=== PATIENT | female | born 1965 | race Caucasian/White ===

== ENCOUNTER → 2018-11-10 | Outpatient (CLI) | payer BC ==
--- NOTE | 2018-11-10 12:04 | RADIOLOGY REPORT (SQ) ---
EXAM DESCRIPTION: U/S ABDOMEN LIMITED W/O DOP COMPLETED DATE/TIME: 11/10/2018 11:39 am REASON FOR STUDY: RUQ PAIN R10.11 RIGHT UPPER QUADRANT PAIN COMPARISON: None. TECHNIQUE: Dynamic and static grayscale images acquired of the abdomen and recorded on PACS. Additio yoon selected color Doppler and spectral images recorded. LIMITATIONS: None. FINDINGS: PANCREAS: No masses. Visualized pancreatic duct normal caliber. LIVER: No masses. Echotexture normal. LIVER VASCULATURE: Normal directional flow of the main portal vein and hepatic veins. GALLBLADDER: No stones. Normal wall thickness. No pericholecystic fluid. ULTRASOUND-DETECTED KRISHNAMURTHY'S SIGN: Negative. INTRAHEPATIC DUCTS AND COMMON DUCT: CBD and intrahepatic ducts normal caliber. No filling defects. INFERIOR VENA CAVA: Normal flow. AORTA: No aneurysm. RIGHT KIDNEY: Normal size. Normal echogenicity. No solid or suspicious masses. No hydronephrosis. No calcifications. PERITONEAL AND RIGHT PLEURAL SPACE: No ascites or effusions. OTHER: No other significant findings. IMPRESSION: NORMAL RIGHT UPPER QUADRANT ULTRASOUND. TECHNICAL DOCUMENTATION: JOB ID: [id number]- All Rights Reserved Reading location - IP/workstation name: [email or web address]
== END ==
LOC: RAD 10:44
PROVIDERS: ATTEND Internal Medicine Gastroenterology
DX: R10.11 Right upper quadrant pain (principal)
CPT/HCPCS: 76705

== ENCOUNTER → 2018-11-25 | Outpatient (CLI) | payer BC ==
--- NOTE | 2018-11-25 11:40 | RADIOLOGY REPORT (SQ) ---
EXAM DESCRIPTION: NM HIDA SCAN WITH CCK COMPLETED DATE/TIME: 11/25/2018 10:21 am REASON FOR STUDY: RUQ PAIN R10.11 RIGHT UPPER QUADRANT PAIN COMPARISON: None. RADIONUCLIDE AND DOSE: DOSAGE RADIONUCLIDE: 5.47 millicuries Tc99m Mebrofenin. DOSAGE CCK: 1.6 micrograms. DOSAGE MORPHINE: Not required. The route of agent administration: Intravenous TECHNIQUE: Serial imaging right upper quadrant up to 60 minutes following injection of radionuclide. CCK injected after gallbladder visualized. LIMITATIONS: None. FINDINGS: LIVER: Normal visualization without areas of photopenia. INTRAHEPATIC BILE DUCTS: Normal size and no delay in visualization. COMMON BILE DUCT: Normal without dilatation. GALLBLADDER: Normal visualization. Calculated ejection fraction of 74%. Normal range is greater th an 35%. PHYSICAL RESPONSE: Patients presenting complaint was not reproduced. OTHER: No other significant finding. IMPRESSION: NORMAL STUDY WITHOUT CYSTIC OR COMMON DUCT OBSTRUCTION. NORMAL GALLBLADDER EJECTION FRA CTION. NO EVIDENCE FOR BILIARY DYSKINESIS. TECHNICAL DOCUMENTATION: JOB ID: [id number] [employer]- All Rights Reserved Reading location - IP/workstation name: [email or web address]
== END ==
LOC: RAD 07:48
PROVIDERS: ATTEND Internal Medicine Gastroenterology
DX: R10.11 Right upper quadrant pain (principal)
CPT/HCPCS: 78227; J2805; A9537; Q9969

== ENCOUNTER → 2019-04-27 | Outpatient (CLI) | payer BC ==
--- NOTE | 2019-04-27 10:14 | WOMENS IMAGING REPORT ---
EXAM DESCRIPTION: 3D SCREENING MAMMO BILAT COMPLETED DATE/TIME: 04/27/2019 9:39 am REASON FOR STUDY: Z12.31 SCREENING MAMMO Z12.31 ENCNTR SCREEN MAMMOGRAM FOR MALIGNANT NEOPLASM OF B RE COMPARISON: None. EXAM PARAMETERS: Views: Standard craniocaudal and mediolateral oblique views of each breast recorded using digital acquisition and breast tomosynthesis. Read with the assistance of CAD. .[facility] - [employer] Version 9.2 LIMITATIONS: None. FINDINGS: No suspicious masses, suspicious calcifications or architectural distortion. No areas of c oncern. IMPRESSION: NEGATIVE MAMMOGRAM. BIRADS 1. BREAST DENSITY: b. There are scattered areas of fibroglandular density. BIRAD: ASSESSMENT: 1 NEGATIVE RECOMMENDATION: ROUTINE SCREENING COMMENT: The patient has been notified of the results by letter per MQSA requirements. Additional no tification policies are in place for contacting patient with suspicious or incomplete findings. Quality ID #[id number]: The [employer] recommends an annual screening mammogram for women aged 40 years or over. This facility utilizes a reminder system to ensure that all patients receive reminder letters, and/or direct phone calls for appointments. This includes reminders for routine scr eening mammograms, diagnostic mammograms, or other Breast Imaging Interventions when appropriate. Th is patient will be placed in the appropriate reminder system. TECHNICAL DOCUMENTATION: FINDING NUMBER: (1) ASSESSMENT: (1) JOB ID: [id number] [employer]- All Rights Reserved Reading location - IP/workstation name: [email or web address]
== END ==
LOC: WI 08:55
PROVIDERS: ATTEND Nurse Practitioner Family
DX: Z12.31 Encounter for screening mammogram for malignant neoplasm of breast (principal)
CPT/HCPCS: 77063; 77067

== ENCOUNTER → 2019-06-08 | Outpatient (CLI) | payer BC ==
--- NOTE | 2019-06-08 16:23 | XCELERA REPORT ---
[address] [address] Lower Extremity Venous Evaluation Procedure: Color flow and duplex imaging bilaterally of the veins of the lower extremities as well as the Common Femoral veins. Right Sided Venous Evaluation Color flow and duplex imaging of the veins of the right lower extremity. Left Sided Venous Evaluation Color flow and duplex imaging of the veins of the right lower extremity. Interpretation Summary No duplex evidence of DVT or obstruction in the bilateral lower extremities. Name: MALKA DUARTE Age: 54 yrs Gender: Female : 1965 Patient Status: Outpatient Patient Location: [facility] Study Date: 06/08/2019 01:02 PM Reason For Study: LOCALIZED EDEMA Ordering Physician: CHAVO ASCENCIO Performed By: Fina Jensen : CHAVO ASCENCIO > Joe Wyatt
--- NOTE | 2019-06-09 08:38 | XCELERA REPORT ---
[address] [address] Tel: [phone] Fax: [phone] Lower Extremity Arterial Evaluation Name: MALKA DUARTE Age: 54 yrs Gender: Female : 1965 Patient Status: Preadmit Patient Location: [facility] Study Date: 06/08/2019 01:47 PM Procedure: Ankle brachial indicies performed. Reason For Study: DECREASED PEDAL PULSES Ordering Physician: CHAVO ASCENCIO Performed By: Serge Cornejo Right Side Arterial Evaluation TONY in Posterior Tibial:1.08. . Multiphasic waveform. Left Side Arterial Evaluation TONY in Anterior Tibial:0.19. Multiphasic waveform. Interpretation Summary Normal TONY. Suggesting normal arterial system, within the limitations of this technique. : CHAVO ASCENCIO > Joe Wyatt
== END ==
LOC: SP 12:39
PROVIDERS: ATTEND Nurse Practitioner Family
DX: R60.0 Localized edema (principal); R09.89 Other specified symptoms and signs involving the circulatory and respiratory systems
CPT/HCPCS: 93922; 93970

== ENCOUNTER 2019-06-22 18:58 | Emergency (ER) | payer BC ==
--- NOTE | 2019-06-22 22:04 | ER Document Report ---
HPI - HPI Time Seen by Provider: 06/22/19 22:02 Pain Level: 3 Context: Patient is a 54-year-old female who presents the emergency department with a chief complaint of left foot injury. Patient reports around 6 PM tonight she was helping her son move a wooden platform when she tripped backwards over a cord. She reports that as she tripped her son dropped a wooden platform on the top of her left foot. Patient reports she was barefoot at that time and is not wearing shoes or socks. Patient reports she is having pain to the top of the left foot with bruising and swelling. Patient has been using crutches of her own. Patient reports her tetanus shot is up-to-date. Patient unable to walk due to the significant pain. Patient reports that she fell she did not injure herself anywhere else and does not have any ankle pain. - CONSTITUTIONAL Constitutional: DENIES: Fever, Chills - DERM Skin Color: Normal Past Medical History - General Information source: Patient - Social History Smoking Status: Never Smoker Frequency of alcohol use: None Drug Abuse: None Lives with: Family Family History: None Patient has suicidal ideation: No Patient has homicidal ideation: No - Past Medical History Cardiac Medical History: Reports: Hx Coronary Artery Disease - CARDIAC CATH IN 2012, Hx Hypertension Denies: Hx Heart Attack Pulmonary Medical History: Denies: Hx Asthma, Hx Bronchitis, Hx COPD, Hx Pneumonia EENT Medical History: Reports: None Neurological Medical History: Reports: Hx Seizures - 2014 POSSIBLY R/T LOW SODIUM. Denies: Hx Cerebrovascular Accident Endocrine Medical History: Reports: None Renal/ Medical History: Reports: None Malignancy Medical History: Reports: None GI Medical History: Reports: None Musculoskeletal Medical History: Reports Hx Arthritis Skin Medical History: Reports None Psychiatric Medical History: Reports: None Traumatic Medical History: Reports: None Infectious Medical History: Reports: None Surgical Hx: Negative - Immunizations Hx Diphtheria, Pertussis, Tetanus Vaccination: Yes Vertical Provider Document - CONSTITUTIONAL Agree With Documented VS: Yes Exam Limitations: No Limitations General Appearance: No Apparent Distress - INFECTION CONTROL TRAVEL OUTSIDE OF THE [place] IN LAST 30 DAYS: No - HEENT HEENT: Atraumatic, Normocephalic, PERRLA - NECK Neck: Normal Inspection - RESPIRATORY Respiratory: Breath Sounds Normal, No Respiratory Distress - CARDIOVASCULAR Cardiovascular: Regular Rate, Regular Rhythm - GI/ABDOMEN Gastrointestinal: Abdomen Soft, Abdomen Non-Tender, Normal Bowel Sounds - MUSCULOSKELETAL/EXTREMETIES Notes: Patient has a superficial abrasion noted to the top of the left foot. Patient does have significant edema and ecchymosis as well as point tenderness to the b ase of the third, fourth and fifth meta tarsals. Patient does have a less than 2-second cap refill on all toes on the foot. Patient does not have any point tenderness to the medial or lateral malleolus. - NEURO Level of Consciousness: Awake, Alert, Appropriate - DERM Integumentary: Warm, Dry Course - Re-evaluation Re-evalutation: 06/22/19 22:04 Patient does have crutches of her own. Will obtain an x-ray to rule out bony abnormality of the left foot. 06/22/19 23:08 Patient x-ray was negative for any acute bony abnormality such as a fracture dislocation. Patient will be diagnosed with a contusion of the left foot. Patient was given strict return precautions and noted that if she did not feel better within the next week to follow-up with her primary care physician or the orthopedic to have a repeat x-ray. Patient verbalized understanding. Patient does have crutches that she brought from home. - Vital Signs Vital signs: Temp Pulse Resp BP Pulse Ox 98.4 F 65 15 135/75 H 98 06/22/19 19:34 06/22/19 19:34 06/22/19 19:34 06/22/19 19:34 06/22/19 19:34 - Diagnostic Test Radiology reviewed: Reports reviewed Radiology results interpreted by me: 06/22/19 23:01 Foot X-Ray 06/22/19 22:02 IMPRESSION: No acute fracture copyright 2011 [employer]- All Rights Reserved Discharge - Discharge Clinical Impression: Contusion of left foot Qualifiers: Encounter type: initial encounter Qualified Code(s): S90.32XA - Contusion of left foot, initial encounter Condition: Stable Disposition: HOME, SELF-CARE Additional Instructions: *Today you are seen in the emergency department for left foot pain after an injury. We did obtain an x-ray which was negative for any acute fracture. At this time there is no obvious fracture. Your symptoms are most likely consistent with a left foot contusion. Contusions or deep bruises. This can cause swelling as well as bruising. Please continue to use her crutches over the next few days, keep the foot elevated, keep this iced. If you continue to have foot pain after 1 week that gets worse and is not improving I would follow- up with orthopedics or return to the emergency department for repeat x-ray. Sometimes there is so much swelling after the initial injury they cannot see a fracture. Please take Tylenol and ibuprofen as needed for pain. Referrals: CHAVO ASCENCIO NP [Primary Care Provider] - Follow up as needed JENS CEBALLOS MD [ACTIVE STAFF] - Follow up as needed NICKOLAS VIVAR JR, DO [ACTIVE PROVISIONAL STAFF] - Follow up as needed
--- NOTE | 2019-06-22 22:59 | RADIOLOGY REPORT (SQ) ---
EXAM DESCRIPTION: XR FOOT 3 OR MORE VIEWS COMPLETED DATE/TME: 06/22/2019 22:02 CLINICAL HISTORY: 54 years, Female, dropped wooden platform on foot COMPARISON: None. NUMBER OF VIEWS: 3 TECHNIQUE: 3 view left foot LIMITATIONS: None. FINDINGS: Dorsal soft tissue swelling. Negative for acute fracture or dislocation. IMPRESSION: No acute fracture copyright 2010 [employer]- All Rights Reserved
[2019-06-22 23:23] VITALS: BP 133/90
== END 2019-06-22 23:20 | disposition home or self-care (01) ==
LOC: ER 18:58
DX: S90.32XA Contusion of left foot, initial encounter (principal); W01.0XXA Fall on same level from slipping, tripping and stumbling without subsequent striking against object, initial encounter
CPT/HCPCS: 99283

== ENCOUNTER 2020-06-10 10:32 | Day surgery (SDC) | payer BC ==
[~2020-06-10 10:32] MED LIST: CEFAZOLIN 2 GM/D5W RTU 2 GM/50 ML RTUPB IV PRN; FENTANYL CITRATE INJ/PF 100 MCG/2 ML AMPUL ONE; LACTATED RINGERS 1000 ML IV PRN; MIDAZOLAM 2 MG/2 ML INJ ONE; PROPOFOL INJ 200 MG/20 ML VIAL IV ONE
[2020-06-10] MEDS ORDERED: ONDANSETRON HCL INJ/PF 4 MG/2 ML SDV IV PRN (11:40)
[2020-06-10] MEDS ORDERED: RINGERS SOLUTION,LACTATED 1,000 ML IV PRN (11:40)
[2020-06-10] MEDS ORDERED: KETOROLAC TROMETHAMINE 60 MG/2 ML SDV IM PRN (11:40)
[2020-06-10] MEDS ORDERED: OXYCODONE-ACETAMINOPHEN 5-325 MG TABLET PO PRN ×3 (11:40→12:09)
[2020-06-10] MEDS ORDERED: BUPIVACAINE HCL 0.25 % INJ/PF (2.5 MG/1 ML) 30 ML VIAL ONE (11:45)
[2020-06-10] MEDS ORDERED: TRIAMCINOLONE ACETONIDE INJ 40 MG/1 ML VIAL ONE (11:45)
[2020-06-10] MEDS ORDERED: PROMETHAZINE HCL INJ 25 MG/1 ML VIAL IV PRN ×2 (12:09)
[2020-06-10] MEDS ORDERED: DIPHENHYDRAMINE HCL 50 MG/ML VIAL IV PRN (12:09)
[2020-06-10] MEDS ORDERED: FENTANYL CITRATE INJ/PF 100 MCG/2 ML AMPUL IV PRN ×3 (12:09)
[2020-06-10] MEDS ORDERED: MORPHINE SULFATE 10 MG/ML INJ IV PRN (12:09)
--- NOTE | 2020-06-10 12:12 | Operative Report ---
Operative Report DATE OF SURGERY: 06/10/20 PREOPERATIVE DIAGNOSIS: Left shoulder adhesive capsulitis POSTOPERATIVE DIAGNOSIS: Left shoulder adhesive capsulitis OPERATION: Left shoulder manipulation under anesthesia, left shoulder injection. SURGEON: NICKOLAS VIVAR JR ANESTHESIA: Moderate Sedation COMPLICATIONS: None ESTIMATED BLOOD LOSS: None PROCEDURE: Patient has diagnosis of left shoulder adhesive capsulitis that has been refractory to approximately 6 weeks of physical therapy. At this point she feels that she has plateaued and is not making further gains and was interested in further intervention for improving her shoulder range of motion and pain. Preoperatively we discussed risks and benefits of different treatment alternati ves including surgical and nonsurgical management and potentially manipulating under anesthesia with a subsequent shoulder injection. She opted for the latter and provided informed operative consent in the office. The patient was brought into the holding area and the PACU where she was placed under moderate sedation. Appropriate timeout was performed followed by evaluation of the right shoulder under anesthesia. Right shoulder range of motion was 170 degrees of forward flexion 170 degrees of abduction, 30 degrees of internal rotation and a D duction, 70 degrees of external rotation and add uction, 90 degrees of external and 90 degrees of internal rotation rotation in 90 degrees of abduction. The left shoulder was then evaluated under anesthesia and found to have approximately 10 degrees of internal and external rotation and 90 degrees of a B duction, similar findings in adduction, forward flexion to approximately 100 degrees, abduction to 90 degrees, extension to 20 degrees. I then proceeded to take the patient through a range of motion and forward flexion to 170 degrees. Substantial amount of crepitance was experienced as she released her capsule. This was palpable and audible. Patient was then taken through abduction with similar findings and then subsequently through internal and external rotation of both abduction and adduction. We were able to obtain symmetrical range of motion to the contralateral side. The only area where we the patient had some persistent stiffness was in internal rotation and adduction which reached approximately 70 degrees and had a soft endpoint. After completing the manipulation under anesthesia I then palpated the left shoulder to find the coracoid. The soft spot in the posterior shoulder behind the corner of the acromion was palpated as well and marked. Under sterile technique, a injection consisting of 3 cc of quarter percent Marcaine and 40 mg of Kenalog. Was injected from the soft spot towards the coracoid. I was able to appreciate the encounter of the humeral head and the injection freely flowed into the glenohumeral joint. After this a sterile Band-Aid was placed. The patient was then awake from anesthesia.
[2020-06-10] MEDS: FENTANYL CITRATE INJ/PF 100 MCG/2 ML AMPUL ONE ×2 (12:14→12:19)
[2020-06-10] MEDS ORDERED: OXYCODONE-ACETAMINOPHEN 5-325 MG TABLET ONE (13:03)
[2020-06-10 14:19] VITALS: BP 109/56
== END 2020-06-10 14:09 | disposition home or self-care (01) ==
LOC: OROUT 10:32
PROVIDERS: ATTEND Orthopaedic Surgery
DX: M75.02 Adhesive capsulitis of left shoulder (principal); M75.82 Other shoulder lesions, left shoulder; Z20.828 Contact with and (suspected) exposure to other viral communicable diseases; Z79.899 Other long term (current) drug therapy; I10 Essential (primary) hypertension; K21.9 Gastro-esophageal reflux disease without esophagitis
CPT/HCPCS: 23700; 20610; U0003; J2250; J3010; J3301; J2704; C9803; 1620; 87635